=== PATIENT | female | born 1955 | race Caucasian/White ===

== ENCOUNTER → 2024-10-29 | Outpatient (CLI) | payer MEDICARE, MEDICAID, SELFPAY ==
--- NOTE | 2024-10-29 15:25 | CT_ITS ---
PROCEDURE: ABDOMEN/PELVIS WITHOUT CONT 10/29/2024 REASON FOR EXAM: ABDOMINAL PAIN TECHNIQUE: Procedure Code: [id number] Modality: CT Procedure: ABDOMEN/PELVIS WITHOUT CONT Noncontrast technique limits evaluation of the abdominal and pelvic viscera. Coronal and Sagittal reconstruction series were provided. One or more dose reduction techniques were used (e.g., Automated exposure control, adjustment of the mA and/or kV according to patient size, use of iterative reconstruction technique). RADIATION DOSE SUMMARY: CTDlvol: 6.27 mGy DLP: 303.69 mGycm COMPARISON: None FINDINGS: Lung bases: There is a 1.3 cm by 1 cm spiculated nodule in the posterior medial segment of the right lower lobe as seen on axial image number 10 and coronal image number 57 air bronchograms are seen within it. This most likely represents scarring although a dedicated CT scan of the chest is recommended for further evaluation. Mild linear scarring at the lung bases. Minimal anterior pericardial thickening. Liver: Normal size. No obvious mass. Gallbladder: Unremarkable Spleen: Normal size. Pancreas: Normal size. No surrounding inflammation. Adrenals: Unremarkable. Kidneys: Tiny calculus in the middle pole calyx of the left kidney. No evidence of hydronephrosis. Bladder: Unremarkable Reproductive Organs: Unremarkable Bowel: Colonic diverticulosis without diverticulitis. Appendix: The appendix is not identified. There is no inflammatory process identified in the right lower quadrant to suggest appendicitis. Lymph nodes: Unremarkable. Vasculature: Mild diffuse atherosclerotic calcifications are noted. Peritoneum / Retroperitoneum: Unremarkable Bones: Degenerative changes of the spine. Minimal anterior listhesis of L4 on L5 due to facet joint osteoarthritis. CT/Abdomen/Pelvis without Cont IMPRESSION: 1.3 cm 1 cm spiculated nodule in the posterior medial segment of the right lowe r lobe as described. Dedicated CT scan of the thorax is recommended for further evaluation. Nonobstructive tiny calculus in the midpole calyx of the left kidney. Scattered sigmoid diverticula. Reading Location: [id number]
== END | disposition home or self-care (01) ==
LOC: CT 15:20
DX: R10.9 Unspecified abdominal pain (principal)
CPT/HCPCS: 74176

== ENCOUNTER → 2024-11-06 | Outpatient (CLI) | payer MEDICARE, MEDICAID, SELFPAY ==
--- NOTE | 2024-11-06 11:06 | MRI_ITS ---
PROCEDURE: BRAIN W/WO CONTRAST 11/06/2024 REASON FOR EXAM: LEFT CN VII, RULE OUT STROKE, MASS/LESION TECHNIQUE: Procedure Code: MRIBRWW Modality: MR Procedure: BRAIN W/WO CONTRAST Multiplanar and multisequence images were obtained. CONTRAST: Clariscan VOLUME: 10 mL COMPARISON: none FINDINGS: No acute or hyperacute infarcts. No intracerebral or extra-axial hematomas. No obvious enhancing masses. Bilateral cerebral periventricular white matter high T2/FLAIR WI signal. Normal MRI signal of the cerebellar hemispheres and brain stem. Dilated ventricular system, cortical sulci and extra-axial CSF spaces. No shift of midline structures. Normal & comparable sizes of the seventh and eighth cranial nerves on both sides. No obvious related masses. No cerebello-pontine angle masses detected. The examined mastoid air cells are clear. Normal MRI appearance of orbital structures, both globes, optic nerves, optic chiasm, optic tracts and optic radiations. Scanned paranasal sinuses are unremarkable. MRI/Brain W/WO Contrast IMPRESSION: No acute infarcts. No intracerebral or extra-axial hematomas. No enhancing mass es. Bilateral cerebral microvascular ischemic changes with brain involutional almanzar es. Reading Location[facility]
== END | disposition home or self-care (01) ==
LOC: MRI 11:01
PROVIDERS: Referring Provider Ophthalmology; Visit Provider Ophthalmology
DX: R90.89 Other abnormal findings on diagnostic imaging of central nervous system (principal)
CPT/HCPCS: 70553; A9575; A4216